=== PATIENT | male | born 2000 | race Caucasian/White ===

== ENCOUNTER 2023-02-03 07:01 | Emergency (ER) | payer SELFPAY | END 2023-02-03 07:36 | disposition home or self-care (01) | LOC: ERS 07:01 | DX: B34.9 Viral infection, unspecified (principal) | CPT/HCPCS: 99283 ==

== ENCOUNTER 2023-07-19 15:11 | Emergency (ER) | payer SELFPAY ==
[2023-07-19 20:22] LABS: Chlam.trachomatis by PCR,Urine DETECTED (NotDetected); GC N.gonorrhoeae PCR,UrineVOID Not Detected (NotDetected)
== END 2023-07-19 15:50 | disposition home or self-care (01) ==
LOC: ERS 15:11
DX: Z11.3 Encounter for screening for infections with a predominantly sexual mode of transmission (principal); F17.290 Nicotine dependence, other tobacco product, uncomplicated
CPT/HCPCS: 87491; 87591; 99283

== ENCOUNTER 2024-03-05 23:01 | Emergency (ER) | payer SELFPAY ==
[2024-03-06] MEDS ORDERED: Dexamethasone 10 MG/ML VIAL ONE (00:18)
== END 2024-03-06 00:29 | disposition home or self-care (01) ==
LOC: ERS 23:01
DX: B34.9 Viral infection, unspecified (principal); F17.210 Nicotine dependence, cigarettes, uncomplicated; F17.290 Nicotine dependence, other tobacco product, uncomplicated; Z55.0 Illiteracy and low-level literacy
CPT/HCPCS: 87428; 99284; J1100